=== PATIENT | male | born 1980 | race Caucasian/White ===

== ENCOUNTER → 2020-07-30 16:34 | Outpatient (CLI) | payer OTHER, SELFPAY ==
--- NOTE | ~2020-07-30 | MR_ITS ---
EXAMINATION: MR knee RT wo con DATE: 07/30/2020 18:10 INDICATION: Chronic right knee pain. TECHNIQUE: Magnetic resonance imaging (MRI) of the right knee was performed without intravenous contr ast. Sequences included coronal PD-weighted FSE, coronal PD-weighted FS FSE, sagittal T2-weighted FS E, sagittal PD-weighted FS FSE and axial PD weighted fat saturated FSE. COMPARISON: None. FINDINGS: Medial compartment: The posterior horn of the medial meniscus appears slightly smaller than typical suggesting prior part ial meniscectomy. Linear increased signal of less than fluid intensity extending to contact the infer ior articular surface of the body and medial side of the posterior horn of the medial meniscus consis tent with longitudinal oblique tear or potentially healed tear in the appropriate clinical setting. A dditional increased signal at both the superior and inferior articular surface along the inner third of the lateral side of the posterior horn with similar differential. Chondral surface irregularity wi th relatively preserved cartilage thickness along the anterior to central weightbearing medial femora l condyle. Lateral compartment: Small posterior horn and diminutive body and anterior horn of the lateral meniscus also likely reflec ting changes of prior partial meniscectomy. There is partial thickness cartilage loss with mild chond ral surface irregularity along the posterior rim of the lateral tibial plateau. Patellofemoral compartment: Focal chondral swelling and heterogeneous signal suggesting focal partial-thickness fissuring at the medial side of the medial patellar facet. Additional shallow fissuring at the apical ridge. Trochlear cartilage appears normal. Ligaments and tendons: Anterior and posterior cruciate ligaments are normal. The fibular collateral ligament is normal. Ther e is mild thickening without significant increased signal of the proximal medial collateral ligament consistent with mild scarring related to chronic sprain. The extensor mechanism is normal. The visual ized medial and lateral hamstring tendons as well as the iliotibial band are normal. Fluid: Physiologic amount of fluid in the joint space. No loose osteochondral bodies identified. Mild prepat ellar edema without discrete bursal fluid collection. Osseous/other: Normal marrow signal. No fracture or pathologic marrow replacing process. IMPRESSION: 1. Small posterior horn of the medial meniscus and small posterior horn and diminutive body of the la teral meniscus likely reflecting changes of prior meniscectomies. Linear increased signal of less shelby n fluid intensity at the body of the medial meniscus which could represent either residual/recurrent tear or repaired tear. Correlate with any prior outside imaging to determine whether this is new or c hronic. Otherwise if indicated MRI arthrogram could be obtained to differentiate residual/recurrent f rom repaired tear. Line 2. 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 Reviewed, dictated and finalized at location A. IMPRESSION: 1. Small posterior horn of the medial meniscus and small posterior horn and dim inutive body of the lateral meniscus likely reflecting changes of prior menisce ctomies. Linear increased signal of less than fluid intensity at the body of th e medial meniscus which could represent either residual/recurrent tear or repai red tear. Correlate with any prior outside imaging to determine whether this is new or chronic. Otherwise if indicated MRI arthrogram could be obtained to dif ferentiate residual/recurrent from repaired tear. Line 2. Mild tricompartmental osteoarthritis with small regions of low to moderate g rade ch
== END ==
PROVIDERS: Visit Provider Orthopaedic Surgery
DX: M17.11 Unilateral primary osteoarthritis, right knee (principal)
CPT/HCPCS: 73721